=== PATIENT | female | born 2000 | race Caucasian/White ===

== ENCOUNTER 2025-03-05 10:56 | Inpatient (IN) ==
--- NOTE | 2025-03-05 11:05 | Emergency Department Note ---
Impression & Plan Acute psychosis ED Provider Note NAME: COLT BASS AGE: 24 SEX: F : 2000 ARRIVES VIA: Ambulance INFORMANT: Patient, Parents, computer security manager ED PROVIDER(S): Arslan Phoenix MD CHIEF COMPLAINT: Change in behavior MEDICAL DECISION MAKING: Patient presents due to concern for guera and labile emotional state. Blood work was obtained patient was the medically cleared. Patient was ordered sublingual Ativan which the patient initially refused after further discussion the patient was amenable to. Patient did have a 302 completed. Patient was accepted to 3 [facility]. and subsequently admitted. Prior to admission the patient was ordered Zyprexa 10 mg p.o. Discussion w/ other healthcare providers: ED case management Prior /Outside records reviewed: None Differential diagnosis: Mood disorder, infection, hypoglycemia, electrolyte abnormalities, dehydration, medication side effect among others were considered. 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 Patient reportedly does have a history of bipolar disorder not on any active medications. Patient has been having emotional lability ranging from laughing to crying. Patient reportedly has inappropriate periods of laughter and sadness. Not taking medications. Reportedly has associated yazidi preoccupation and states that she speaks with God and Paul. Patient states that Paul told her to pack a lunch for her princef and his family today. PAST MEDICAL HISTORY: See Below PAST SURGICAL HISTORY: See Below SOCIAL HISTORY: See Below HOME MEDICATIONS: See Below ALLERGIES: See Below VITALS: See Below PHYSICAL EXAMINATION: GENERAL: NAD, non-toxic. EYE EXAM: Normal conjunctiva. PERRL, no anisocoria and EOM's grossly intact w/o pain. OROPHARYNX: Moist mucus membranes, grossly normal dentition. NECK: Trachea midline, no stridor. Supple, no nuchal rigidity, no adenopathy, non-tender. No signs of meningismus. FROM of the neck with good chin to chest and neck extension. LUNGS: Clear to auscultation. Normal chest wall mechanics. HEART: NSR, no MRG. ABDOMEN: Abdomen soft, non-tender, no masses, no rebound or guarding. BACK: No CVA TTP. SKIN: No rashes and no bruising. UPPER EXTREMITIES: Upper extremities are grossly normal. LOWER EXTREMITIES: Grossly normal, no edema. NEURO EXAM: A&O x3, cranial nerves II-XII grossly intact, normal speech, moves all 4 extremities. Psych: Emotional lability, denies SI HI or AVH. Past Med/Surg History Problem List (Updated 03/05/25 @ 17:41 by Arslan Phoenix MD) Acute psychosis (Acute) Medical History No pertinent past medical history No pertinent family history Surgical History No pertinent past surgical history Social History Smoking Status: Never smoker Preferred Language: Honduran Feels Safe at Home: Yes Gender Identity: Female Allergies Allergies Allergy/AdvReac Type Severity Reaction Status Date / Time No Known Allergies Allergy Unverified 09/15/23 16:10 Home Meds Home Medications Medication Instructions Recorded Confirmed divalproex 500 mg tablet,delayed 500 mg PO BID 09/15/23 09/15/23 release (Depakote) haloperidol 2 mg tablet 4 mg PO HS 09/15/23 03/05/25 Previous Rx's Medication Instructions Recorded divalproex 250 mg tablet,delayed 750 mg (3 x 250 mg) PO BID #270 09/15/23 release (Depakote) tabs Results & Data (ED) Vital Signs Vital Signs - 24 hr 03/05/25 10:51 03/05/25 10:58 Temperature 37.0 C Temperature Source Oral Pulse Rate [Right Brachial] 68 Pulse Rhythm [Right Brachial] Regular Pulse Strength [Right Brachial] Normal Respiratory Rate 18 Respiratory Effort / Characteristics Non-Labored Respiratory Depth Normal Respiratory Pattern Regular Blood Pressure [Right Arm] 121/80 Blood Pressure Mean [Right Arm] 93 Blood Pressure Position [Right Arm] Lying Pulse Oximetry 98 Oxygen Delivery Method Room Air Sepsis Recent Fever Within 48 Hours No Sepsis New/Unexplained Change in Mental Status N/A Sepsis Action Taken by Nursing No Action Required Home Medications Current Medication List: was personally reviewed by me Laboratory Data Attestation: I reviewed the patient's lab results. 03/05/25 12:05 03/05/25 12:05 Lab Results 03/05/25 03/05/25 Range/Units 11:34 12:05 WBC 6.21 (4.8-10.8) K/ul RBC 4.50 (4.20-5.40) M/uL Hgb 13.2 (12.0-16.0) g/dl Hct 39.3 (37.0-47.0) % MCV 87.3 (80.0-100.0) fL MCH 29.3 (25.0-34.0) pg MCHC 33.6 (32.0-36.0) g/dL RDW Std Deviation 42.9 (36.4-46.3) fL RDW Coeff of Manuel 13.6 (11.5-14.5) % Plt Count 255 (130-400) K/uL MPV 9.4 (9.4-12.4) fL Immature Gran % (Auto) 0.3 % Neut % (Auto) 57.0 % Lymph % (Auto) 33.3 % [place] % (Auto) 8.4 % Eos % (Auto) 0.8 % Baso % (Auto) 0.2 % Neut # (Auto) 3.54 (1.40-6.50) K/uL Lymph # (Auto) 2.07 (1.20-3.40) K/uL [place] # (Auto) 0.52 (0.11-0.59) K/uL Eos # (Auto) 0.05 (0.00-0.50) K/uL Baso # (Auto) 0.01 (0.00-0.20) K/uL Immature Gran # (Auto) 0.02 (0.01-0.20) K/uL Sodium 138 (136-145) mmol/L Potassium 3.8 (3.5-5.1) mmol/L Chloride 106 (98-107) mmol/L Carbon Dioxide 26 (21-32) mmol/L Anion Gap 6 (3-11) BUN 7 (6-23) mg/dl Creatinine 0.67 (0.6-1.2) mg/dl Est Cr Clr Drug Dosing Not Reportable eGFR 126.66 BUN/Creatinine Ratio 10.4 (10-20) Glucose 99 (70-99(Fasting)) mg/dl Calcium 9.1 (8.6-10.3) mg/dl Total Bilirubin 0.6 (0.2-1.0) mg/dl AST 21 (13-39) U/L ALT 27 (7-52) U/L Alkaline Phosphatase 98 (34-104) U/L Total Protein 7.1 (6.0-8.3) gm/dl Albumin 4.3 (3.4-5.0) gm/dl Globulin 2.8 (2.5-4.0) gm/dl Albumin/Globulin Ratio 1.5 (0.9-2) TSH 1.374 (0.300-4.500) uIu/ml Urine Color Yellow Urine Appearance Clear (Clear) Urine pH 6.5 (4.5-7.5) Ur Specific [place] 1.007 (1.000-1.030) Urine Protein Negative (Negative) Urine Glucose (UA) Negative (Negative) Urine Ketones Negative (Negative) Urine Blood Negative (Negative) Urine Nitrite Negative (Negative) Urine Bilirubin Negative (Negative) Urine Urobilinogen Negative (Negative) Ur Leukocyte Esterase Negative (Negative) Urine Test Negative (Negative) Salicylates < 3.0 L (3.0-30) mg/dl Urine Opiates Screen Neg (Neg) Ur Methadone, Qual Neg (Neg) Urine Fentanyl Screen Neg (Neg) Acetaminophen < 3 L (10-30) ug/ml Urine Barbiturates Neg (Neg) Ur Phencyclidine (PCP) Neg (Neg) U Amphetamin/Meth Scrn Neg (Neg) MDMA (Ecstasy) Screen Neg (Neg) U Benzodiazepines Scrn Neg (Neg) Ur Cocaine Metabolite Neg (Neg) U Marijuana (THC) Screen Neg (Neg) Ethyl Alcohol mg/dL < 10.0 (<10.0) mg/dl SARS-CoV-2, RNA, NAAT NEGATIVE (NEGATIVE) Administered Medications Discontinued Medications Lorazepam (Lorazepam 1 Mg Tab) 1 mg PO NOW STA Stop: 03/05/25 12:04 Last Admin: 03/05/25 12:17 Dose: Not Given Documented By: VIV Lorazepam (Lorazepam 1 Mg Tab) 1 mg SL NOW STA Stop: 03/05/25 12:04 Last Admin: 03/05/25 14:20 Dose: 1 mg Documented By: VIV Discharge Plan Visit Data Chief Complaint: Mental Health Evaluation Stated Complaint: MHID ED Provider: Arslan Phoenix Discharge Problem: Acute psychosis Discharge Instructions Augusto/Other Patient Handouts: Lorazepam Oral Tablet Forms Stand Alone Forms: My [facility], Suicide Prevention Resources Prescriptions Prescriptions: No Action divalproex [Depakote] 500 mg Tablet,Delayed Release (Dr/Ec) 500 mg PO BID haloperidol [Haldol] 2 mg Tablet 4 mg PO HS divalproex [Depakote] 250 mg tablet,delayed release (DR/EC) 750 mg PO BID Qty: 270 0RF Referrals [facility]: [facility] [Primary Care Provider] -
[2025-03-05] MEDS: LORazepam 1 MG TAB PO STA (12:17)
[2025-03-05 12:33] LABS: Pregnancy Test, Urine Negative (Negative)
[2025-03-05 12:34] LABS: Basophils # (auto) 0.01 K/uL (0.00-0.20); Basophils % (auto) 0.2 %; Eosinophils # (auto) 0.05 K/uL (0.00-0.50); Eosinophils % (auto) 0.8 %; Hematocrit (blood only) 39.3 % (37.0-47.0); Hemoglobin 13.2 g/dl (12.0-16.0); Immature Granulocytes # (auto) 0.02 K/uL (0.01-0.20); Immature Granulocytes % (auto) 0.3 %; Lymphocytes # (auto) 2.07 K/uL (1.20-3.40); Lymphocytes % (auto) 33.3 %; Mean Corpuscular Hemoglobin 29.3 pg (25.0-34.0); Mean Corpuscular Hgb Conc 33.6 g/dL (32.0-36.0); Mean Corpuscular Volume 87.3 fL (80.0-100.0); Mean Platelet Volume 9.4 fL (9.4-12.4); Monocytes # (auto) 0.52 K/uL (0.11-0.59); Monocytes % (auto) 8.4 %; Neutrophils # (auto) 3.54 K/uL (1.40-6.50); Platelet Count 255 K/uL (130-400); RDW Coefficient of Variation 13.6 % (11.5-14.5); RDW Standard Deviation 42.9 fL (36.4-46.3); White Blood Count 6.21 K/ul (4.8-10.8)
[2025-03-05 12:37] LABS: Appearance Urine Clear (Clear); Bilirubin Urine Negative (Negative); Blood Urine Negative (Negative); Color Urine Yellow; Glucose Urine UA Negative (Negative); Ketones Urine Negative (Negative); Leukocyte Esterase Urine Negative (Negative); Nitrite Urine Negative (Negative); Protein Urine Negative (Negative); Specific Gravity Urine 1.007 (1.000-1.030); Urobilinogen Urine Negative (Negative); pH Urine 6.5 (4.5-7.5)
[2025-03-05 13:00] LABS: Alanine Aminotransferase 27 U/L (7-52); Albumin Globulin Ratio 1.5 (0.9-2); Albumin Level 4.3 gm/dl (3.4-5.0); Alkaline Phosphatase 98 U/L (34-104); Anion Gap 6 (3-11); Aspartate Aminotransferase 21 U/L (13-39); BUN Creatinine Ratio 10.4 (10-20); Bilirubin,Total 0.6 mg/dl (0.2-1.0); Blood Urea Nitrogen 7 mg/dl (6-23); Calcium 9.1 mg/dl (8.6-10.3); Carbon Dioxide 26 mmol/L (21-32); Chloride 106 mmol/L (98-107); Globulin 2.8 gm/dl (2.5-4.0); Glucose 99 mg/dl (70-99(Fasting)); Potassium 3.8 mmol/L (3.5-5.1); Sodium 138 mmol/L (136-145); Total Protein 7.1 gm/dl (6.0-8.3)
[2025-03-05 13:03] LABS: Acetaminophen < 3 ug/ml (10-30); Salicylate < 3.0 mg/dl (3.0-30)
[2025-03-05 13:13] LABS: Thyroid Stimulating Hormone 1.374 uIu/ml (0.300-4.500)
[2025-03-05 13:21] LABS: Amphetamines+Metham, Urine Neg (Neg); Barbiturates, Urine Neg (Neg); Benzodiazepine, Urine Neg (Neg); Cocaine, Urine Neg (Neg); Fentanyl, Urine Neg (Neg); MDMA (Ecstacy), Urine Neg (Neg); Marijuana, Urine Neg (Neg); Methadone, Urine Neg (Neg); Opiate, Urine Neg (Neg); Phencyclidine, Urine Neg (Neg)
[2025-03-05] MEDS: LORazepam 1 MG TAB SL STA (14:20)
[2025-03-05] MEDS ORDERED: MAGNESIUM HYDROXIDE SUSP 30 ML UDC PO PRN (16:36)
[2025-03-05] MEDS ORDERED: BISMUTH SUBSALICYLATE 262 MG CHEW PO PRN (16:36)
[2025-03-05] MEDS ORDERED: SODIUM CHLORIDE 0.65% NA SOLN 45 ML (OCEAN) PRN (16:36)
[2025-03-05] MEDS ORDERED: hydrOXYzine HCl 25 MG TAB PO PRN ×2 (16:36)
[2025-03-05] MEDS ORDERED: ALUMINUM/MAGNESIUM SUSP 30 ML UDC PO PRN (16:36)
[2025-03-05] MEDS: OLANZapine 10 MG TAB PO STA (18:06)
[2025-03-05] MEDS ORDERED: haloperidoL 5 MG TAB PO PRN (18:08)
[2025-03-05] MEDS: LORazepam 1 MG TAB PO SCH (21:23)
[2025-03-06] MEDS: ARIPiprazole 10 MG TAB PO SCH (09:07)
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
[2025-03-06] MEDS: hydrOXYzine HCl 25 MG TAB PO SCH (20:15)
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
[2025-03-07] MEDS: LORazepam 1 MG TAB PO SCH (21:42)
[2025-03-07] MEDS ORDERED: LORazepam 1 MG TAB PO SCH (22:00)
[2025-03-08] MEDS: ARIPiprazole 15 MG TAB PO SCH (08:58)
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
[2025-03-08] MEDS: LORazepam 1 MG TAB PO PRN (20:35)
[2025-03-08] MEDS: hydrOXYzine HCl 25 MG TAB PO SCH (21:55)
[2025-03-08] MEDS: LORazepam 0.5 MG TAB PO SCH (21:55)
[2025-03-09 07:26] LABS: Chol HDL Ratio 2.9 (0-5)
[2025-03-09] MEDS: ARIPiprazole 10 MG TAB PO SCH (08:14)
[2025-03-09 08:27] LABS: Estimated Average Glucose 108 mg/dl; Hemoglobin A1C 5.4 % (4.5-5.6)
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
[2025-03-09] MEDS: CHOLECALCIFEROL 125 MCG (5,000 UNITS) TAB PO SCH (14:03)
[2025-03-09] MEDS: hydrOXYzine HCl 25 MG TAB PO SCH (21:20)
[2025-03-09] MEDS: LORazepam 0.5 MG TAB PO SCH (21:20)
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
[2025-03-10] MEDS: LORazepam 1 MG TAB PO SCH (21:06)
[2025-03-11] MEDS: ARIPiprazole 400 MG PRE-FILLED SYRINGE IM SCH (12:27)
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
[2025-03-11] MEDS: ACETAMINOPHEN 325 MG TAB PO PRN (20:54)
== END 2025-03-12 10:17 | disposition home or self-care (01) | DRG 885 ==
LOC: ED 10:56 → 3S 16:36
DX: Z81.8 Family history of other mental and behavioral disorders; R45.88 Nonsuicidal self-harm; G47.00 Insomnia, unspecified; E55.9 Vitamin D deficiency, unspecified; Z79.899 Other long term (current) drug therapy; F30.12 Manic episode without psychotic symptoms, moderate; Z62.810 Personal history of physical and sexual abuse in childhood